=== PATIENT | male | born 1985 | race Hispanic/Latino ===

== ENCOUNTER 2019-01-12 18:52 | Emergency (ER) | payer SELFPAY ==
[2019-01-12] MEDS ORDERED: NAPROXEN500 MG PO (20:02)
[2019-01-12 20:10] VITALS: BP 128/72
== END 2019-01-12 20:12 | disposition home or self-care (01) | DRG 605 ==
LOC: ED 18:52
DX: S20.212A Contusion of left front wall of thorax, initial encounter (principal); W01.198A Fall on same level from slipping, tripping and stumbling with subsequent striking against other object, initial encounter